=== PATIENT | male | born 1995 | race Caucasian/White ===

== ENCOUNTER 2019-04-04 15:42 | Emergency (ER) | payer SELFPAY ==
[~2019-04-04] VITALS: Ht 182.9 cm; Wt 129.3 kg
[2019-04-04 16:39] VITALS: BP 120/68
[2019-04-04] MEDS ORDERED: IBUPROFEN 800 MG TAB PO ONE ×2 (17:15→17:16)
== END 2019-04-04 17:25 | disposition home or self-care (01) ==
LOC: ER 15:56
DX: T24.221A Burn of second degree of right knee, initial encounter (principal); Z88.1 Allergy status to other antibiotic agents; X08.8XXA Exposure to other specified smoke, fire and flames, initial encounter; Y93.89 Activity, other specified; Y92.89 Other specified places as the place of occurrence of the external cause; Y99.8 Other external cause status

== ENCOUNTER 2019-07-21 13:36 | Inpatient (IN) | payer MEDICAID ==
[~2019-07-21] VITALS: Ht 190.5 cm; Wt 128.6 kg
[2019-07-21 14:20] LABS: Urine Bacteria FEW /hpf (None Seen); Urine Blood 2+ /uL (Negative); Urine Hyaline Cast FEW /lpf (0 - 2); Urine Mucus FEW (None Seen); Urine Specific Gravity 1.016 (1.001-1.035); Urine WBC 50 /hpf (0 - 3)
[2019-07-21] MEDS ORDERED: SODIUM CHLORIDE 0.9% 1,000 ML IV ONE ×2 (14:43)
[2019-07-21] MEDS ORDERED: TAMSULOSIN HYDROCHLORIDE 0.4 MG CAP PO ONE (14:45)
[2019-07-21] MEDS ORDERED: KETOROLAC TROMETH 30 MG/ML 1ML VIAL IV ONE ×2 (14:45→16:30)
[2019-07-21 14:50] LABS: Basophils # (auto) 0.1 uL; Basophils % (auto) 0.5 % (0.0-2.0); Eosinophils # (auto) 0.4 uL; Eosinophils % (auto) 3.8 % (0.0-7.0); Hematocrit 48.1 % (41.0-53.0); Hemoglobin 16.2 g/dL (13.5-17.5); Lymphocytes # (auto) 1.3 uL; Lymphocytes % (auto) 13.3 % (10.0-50.0); Mean Corpuscular Hemoglobin 29.7 pg (28.0-32.0); Mean Corpuscular Hgb Conc. 33.8 g/dL (32.0-36.0); Mean Corpuscular Volume 87.9 fL (80.0-100.0); Monocytes # (auto) 0.7 uL; Monocytes % (auto) 7.4 % (0.0-12.0); Neutrophils # (auto) 7.3 uL; Nucleated Red Blood Cells % 0.1 %; Platelet Count (auto) 272 10^3/uL (140-450); Red Blood Cells 5.47 10^6/uL (4.5-5.90); Red Cell Distribution Width 12.8 % (11.8-14.3); White Blood Cell 9.8 10^3/uL (4.4-10.8)
[2019-07-21 15:04] LABS: Albumin 3.7 g/dL (3.4-5.0); BUN/Creatinine Ratio 12.1; Calcium 9.2 mg/dL (8.5-10.1); Potassium 4.3 mmol/L (3.5-5.1)
[2019-07-21 15:07] LABS: Bilirubin, Total 0.4 mg/dL (0.2-1.0); Total Protein 7.2 g/dL (6.4-8.2)
[2019-07-21] MEDS ORDERED: cefTRIAXone 1GM/50ML D5W 50 ML IV ONE (17:30)
[2019-07-21] MEDS: SODIUM CHLORIDE 0.9% 1,000 ML IV SCH (17:32)
[2019-07-21] MEDS: TAMSULOSIN HYDROCHLORIDE 0.4 MG CAP PO SCH (18:46)
--- NOTE | 2019-07-21 19:40 | NUR ---
Patient requesting to go outside and smoke. Patient informed of the risk associated with tobacco smoking. Patient verbalized understanding and still requesting to go outside and smoke. Patient signed an AMA to smoke.
--- NOTE | 2019-07-21 20:30 | NUR ---
open note assumed care of pt. upon entering room pt awake, alert and oriented x4. pt on room air no distress noted or expressed. pt updated on plan of care, no questions at this time. pt bed locked, low and 2x rails up. call light in reach, will round on pt q1hr and prn.
[2019-07-21] MEDS: HYDROcodone-ACET 5/325MG TAB PO PRN (21:04)
[2019-07-21 22:00] VITALS: BP 128/69
[2019-07-22] MEDS: SODIUM CHLORIDE 0.9% 1,000 ML IV SCH ×3 (01:48→17:03)
[2019-07-22] MEDS: ACETAMINOPHEN 500 MG TAB PO PRN ×2 (02:45→12:37)
--- NOTE | 2019-07-22 04:08 | NUR ---
pt off unit to smoke. no distress noted.
--- NOTE | 2019-07-22 04:23 | NUR ---
pt back to room. no distress noted or expressed. call light in reach will continue to monitor.
[2019-07-22 05:00] VITALS: BP 129/63
[2019-07-22 06:06] LABS: Basophils # (auto) 0 uL; Basophils % (auto) 0.5 % (0.0-2.0); Eosinophils # (auto) 0.5 uL; Eosinophils % (auto) 6.2 % (0.0-7.0); Hematocrit 42.3 % (41.0-53.0); Hemoglobin 14.4 g/dL (13.5-17.5); Lymphocytes # (auto) 1.9 uL; Lymphocytes % (auto) 26.3 % (10.0-50.0); Mean Corpuscular Hemoglobin 29.9 pg (28.0-32.0); Mean Corpuscular Hgb Conc. 34.1 g/dL (32.0-36.0); Mean Corpuscular Volume 87.6 fL (80.0-100.0); Monocytes # (auto) 0.6 uL; Monocytes % (auto) 7.9 % (0.0-12.0); Neutrophils # (auto) 4.3 uL; Neutrophils % (auto) 59.1 % (37.0-80.0); Nucleated Red Blood Cells % 0.1 %; Platelet Count (auto) 225 10^3/uL (140-450); Red Blood Cells 4.84 10^6/uL (4.5-5.90); Red Cell Distribution Width 12.8 % (11.8-14.3); White Blood Cell 7.4 10^3/uL (4.4-10.8)
[2019-07-22 06:40] LABS: Potassium 3.8 mmol/L (3.5-5.1)
[2019-07-22 06:51] LABS: BUN/Creatinine Ratio 14.2; Calcium 8.5 mg/dL (8.5-10.1)
--- NOTE | 2019-07-22 07:25 | NUR ---
Opening Shift Note Assumed care of patient, awake and alert. Patient expressing pain on right flank, provided warm compresses and position change. Instructed on POC and to call for assist PRN, bed in locked and lowest position, and call light within reach. Will continue to monitor for changes Q1hr and PRN.
[2019-07-22] MEDS: HYDROcodone-ACET 5/325MG TAB PO PRN ×2 (07:51→14:20)
[2019-07-22 08:00] VITALS: BP 116/63
[2019-07-22] MEDS: cefTRIAXone 1GM/50ML D5W 50 ML IV SCH (09:14)
[2019-07-22] MEDS: FAMOTIDINE 20 MG TAB PO SCH (09:15)
--- NOTE | 2019-07-22 09:20 | NUR ---
Patient off floor to go smoke. Signed AMA form in patient file. Educated patient he has 30 minutes to return to room.
--- NOTE | 2019-07-22 09:24 | NUR ---
Patient returned to room from leaving floor.
[2019-07-22 09:37] VITALS: BP 116/63
[2019-07-22 13:00] VITALS: BP 114/62
--- NOTE | 2019-07-22 15:18 | NUR ---
Dr. Marcus bedside with patient discussing plan of care.
[2019-07-22] MEDS ORDERED: KETOROLAC TROMETH 30 MG/ML 1ML VIAL IV ONE (15:45)
[2019-07-22] MEDS: MORPHINE SULF INJ 2 MG/ML SYRINGE 1ML IV PRN (16:15)
[2019-07-22] MEDS: ONDANSETRON HCL 4 MG/2 ML VIAL IV PRN (16:19)
[2019-07-22 16:58] VITALS: BP 120/69
[2019-07-22] MEDS: TAMSULOSIN HYDROCHLORIDE 0.4 MG CAP PO SCH (18:22)
--- NOTE | 2019-07-22 19:35 | NUR ---
OPEN NOTE assumed care of pt. upon entering room pt awake, alert and oriented x4. pt on room air no distress noted or expressed. pt updated on plan of care, pt has 2 collateral at bedside. no questions at this time. bed locked, low and 2x rails up. ct states he will 'go out to smoke for a minute' with collateral. pt has AMA to smoke.
[2019-07-22 21:57] VITALS: BP 142/67
[2019-07-23] MEDS: SODIUM CHLORIDE 0.9% 1,000 ML IV SCH ×3 (01:03→17:03)
[2019-07-23] MEDS: HYDROcodone-ACET 5/325MG TAB PO PRN ×3 (02:50→21:08)
--- NOTE | 2019-07-23 03:58 | NUR ---
pt off unit to smoke. no distress noted or expressed.
--- NOTE | 2019-07-23 04:11 | NUR ---
pt back to room without issue.
[2019-07-23] MEDS: ONDANSETRON HCL 4 MG/2 ML VIAL IV PRN ×2 (04:23→15:11)
[2019-07-23 05:00] VITALS: BP 119/75
[2019-07-23 07:25] LABS: BUN/Creatinine Ratio 10.6; Calcium 8.5 mg/dL (8.5-10.1); Potassium 3.5 mmol/L (3.5-5.1)
[2019-07-23] MEDS: cefTRIAXone 1GM/50ML D5W 50 ML IV SCH (08:42)
[2019-07-23] MEDS: FAMOTIDINE 20 MG TAB PO SCH (08:43)
--- NOTE | 2019-07-23 09:09 | NUR ---
Weekend information technology data analyst-I did not receive a page regarding the social service consult for this patient.
[2019-07-23 09:35] VITALS: BP 113/55
[2019-07-23 13:00] VITALS: BP 112/52
--- NOTE | 2019-07-23 13:20 | NUR ---
Urine sample collected and set to lab
[2019-07-23] MEDS: ACETAMINOPHEN 500 MG TAB PO PRN (13:29)
[2019-07-23] MEDS ORDERED: MANNITOL FTV 25% 12.5 GM/50 ML 50 ML IV ONE (13:30)
[2019-07-23] MEDS ORDERED: KETOROLAC TROMETH 30 MG/ML 1ML VIAL IV PRN (13:30)
[2019-07-23] MEDS: MORPHINE SULF INJ 2 MG/ML SYRINGE 1ML IV PRN (15:11)
[2019-07-23 16:49] VITALS: BP 133/76
--- NOTE | 2019-07-23 18:35 | NUR ---
IV Insertion IV access obtained, via clean sterile technique by inserting 22 gauge catheter in the right hand after one attempt. IV secured properly. No trauma to site. Patient tolerated procedure well.
[2019-07-23] MEDS: TAMSULOSIN HYDROCHLORIDE 0.4 MG CAP PO SCH (18:38)
--- NOTE | 2019-07-23 19:23 | NUR ---
Closing Note Report given to shift leader RN. No signs or symptoms of distress noted at this time.
--- NOTE | 2019-07-23 20:50 | NUR ---
STRAINED 425 ML OF URINE AND NOTHING WAS OBTAINED FROM IT. WILL CONTINUE TO MONITOR.
[2019-07-23 21:54] VITALS: BP 130/76
--- NOTE | 2019-07-23 22:25 | NUR ---
PATIENT OFF UNIT TO SMOKE CIGARETTE.
--- NOTE | 2019-07-23 23:15 | NUR ---
STRAINED 125 ML OF URINE. WAS FREE OF ANY SEDIMENTS.
[2019-07-24] MEDS: ONDANSETRON HCL 4 MG/2 ML VIAL IV PRN ×3 (02:32→23:02)
[2019-07-24] MEDS: MORPHINE SULF INJ 2 MG/ML SYRINGE 1ML IV PRN ×4 (02:32→23:03)
[2019-07-24 04:57] VITALS: BP 109/73
[2019-07-24] MEDS: SODIUM CHLORIDE 0.9% 1,000 ML IV SCH ×3 (05:00→17:36)
--- NOTE | 2019-07-24 05:15 | NUR ---
STRAINED 375 ML OF URINE. NO STONES WERE SEEN ONLY MUCUS STRINGS.
[2019-07-24 05:53] LABS: Basophils # (auto) 0.1 uL; Basophils % (auto) 0.9 % (0.0-2.0); Eosinophils # (auto) 0.4 uL; Eosinophils % (auto) 5.5 % (0.0-7.0); Hematocrit 42.9 % (41.0-53.0); Hemoglobin 14.7 g/dL (13.5-17.5); Lymphocytes # (auto) 2.1 uL; Lymphocytes % (auto) 29.1 % (10.0-50.0); Mean Corpuscular Hemoglobin 29.8 pg (28.0-32.0); Mean Corpuscular Hgb Conc. 34.2 g/dL (32.0-36.0); Mean Corpuscular Volume 87.1 fL (80.0-100.0); Monocytes # (auto) 0.6 uL; Neutrophils # (auto) 4.1 uL; Neutrophils % (auto) 56.5 % (37.0-80.0); Platelet Count (auto) 246 10^3/uL (140-450); Red Blood Cells 4.93 10^6/uL (4.5-5.90); Red Cell Distribution Width 12.7 % (11.8-14.3); White Blood Cell 7.3 10^3/uL (4.4-10.8)
[2019-07-24 06:08] LABS: INR 1.04 (0.9-1.15)
[2019-07-24 06:10] LABS: Calcium 8.7 mg/dL (8.5-10.1); Potassium 3.6 mmol/L (3.5-5.1)
[2019-07-24 06:12] LABS: BUN/Creatinine Ratio 9.9
--- NOTE | 2019-07-24 07:20 | NUR ---
Opening Note Received report from cnc machinist 2nd shift RN. Patient is resting in bed with eyes closed, easy to wake by calling name. No signs or symptoms of distress noted at this time. Per cnc machinist 2nd shift RN patient has been NPO since 399 for possible procedure today. Reviewed plan of care with patient, patient verbalized understanding. Bed in low and locked position, call light within reach. Will continue to monitor Q1 hour and PRN.
--- NOTE | 2019-07-24 08:20 | NUR ---
consents signed and placed in patient chart
--- NOTE | 2019-07-24 08:41 | NUR ---
Patient taken down to laborer livestock
[2019-07-24] MEDS ORDERED: IOHEXOL 350 MG/ML 100ML IJ ONE (08:56)
[2019-07-24] MEDS ORDERED: LIDOCAINE 2%HCL (LOCAL ANESTH.) INJ 20ML MDV ONE ×2 (08:56→09:33)
[2019-07-24] MEDS: cefTRIAXone 1GM/50ML D5W 50 ML IV SCH (09:00)
[2019-07-24] MEDS ORDERED: MIDAZOLAM HCL 1MG/1ML-2 ML VIAL ONE (09:01)
[2019-07-24] MEDS ORDERED: fentaNYL CITRATE 100 MCG/2 ML VL ONE ×2 (09:01→09:47)
[2019-07-24 09:04] VITALS: BP 124/62
[2019-07-24] MEDS: FAMOTIDINE 20 MG TAB PO SCH (10:00)
--- NOTE | 2019-07-24 10:38 | NUR ---
Received report from lab rn Patient to be brought back to room. Will await patient
--- NOTE | 2019-07-24 10:48 | NUR ---
s/p nephrostomy tube Patient back to room. Patient is s/p right nephrectomy tube placement. Patient is awake, alert and oriented x4. No signs or symptoms of distress noted at this time. 100cc of sanguinous fluid noted in collection bag at this time. Dressing to right flank area is clean, dry and intact. Blood pressure 137/87, heart rate 68, 98% on room air, respirations 14. Patient states pain 8/10 to right flank area. Will medicate per MD orders. Bed alarm on for safety, patient instructed to call for assistance. Bed in low and locked position, call light within reach. Will continue to monitor Q1 hour and PRN. Family at bedside
--- NOTE | 2019-07-24 11:21 | NUR ---
Dr. Osman at bedside Updating patient on plan of care. Will continue to monitor Q1 hour and PRN.
[2019-07-24 12:44] VITALS: BP 128/84
[2019-07-24] MEDS: HYDROcodone-ACET 5/325MG TAB PO PRN ×2 (12:44→19:57)
[2019-07-24] MEDS: ACETAMINOPHEN 500 MG TAB PO PRN (14:49)
[2019-07-24 17:00] VITALS: BP 116/60
[2019-07-24] MEDS: TAMSULOSIN HYDROCHLORIDE 0.4 MG CAP PO SCH (18:09)
--- NOTE | 2019-07-24 19:22 | NUR ---
Closing Note Report given to night supervisor RN. No signs or symptoms of distress noted at this time.
--- NOTE | 2019-07-24 19:24 | NUR ---
Total Nephrostomy output 1,075mls
--- NOTE | 2019-07-24 19:45 | NUR ---
Opening shift note Assumed care of patient who is A&Ox4. Currently on RA with no s/s of SOB or distress. Reports 8/10 pain to right flank area. Pain management options discussed with patient. Will medicated according to orders. Patient is able to ambulate independently at baseline. Right nephrostomy tube in place and draining pink tinged urine. Dressing is CDI. POC discussed with patient who verbalizes understanding. Bed is in low locked position with side rails up x2. Call light is within reach and patient encouraged to call for assistance when needed. Will continue to monitor for changes PRN.
[2019-07-24 21:39] VITALS: BP 111/60
--- NOTE | 2019-07-24 21:59 | NUR ---
Nephrostomy output 300ml of pink tinged urine emptied from nephrostomy tube.
--- NOTE | 2019-07-24 22:07 | NUR ---
Strained 200ml light yellow urine. No stones were strained.
--- NOTE | 2019-07-24 22:11 | NUR ---
Patient off unit to smoke cigarette.
--- NOTE | 2019-07-24 22:30 | NUR ---
Patient returned to unit. No distress noted.
--- NOTE | 2019-07-25 01:06 | NUR ---
Nephrostomy output Emptied 300ml of pink tinged urine from nephrostomy bag. Patient tolerated well.
[2019-07-25] MEDS: SODIUM CHLORIDE 0.9% 1,000 ML IV SCH ×2 (01:17→08:11)
[2019-07-25] MEDS: HYDROcodone-ACET 5/325MG TAB PO PRN ×2 (02:42→11:39)
[2019-07-25 05:02] VITALS: BP 136/75
[2019-07-25 06:42] LABS: Basophils # (auto) 0.1 uL; Basophils % (auto) 0.7 % (0.0-2.0); Eosinophils # (auto) 0.3 uL; Eosinophils % (auto) 4.4 % (0.0-7.0); Hematocrit 43.4 % (41.0-53.0); Hemoglobin 14.9 g/dL (13.5-17.5); Lymphocytes % (auto) 27.7 % (10.0-50.0); Mean Corpuscular Hemoglobin 30.2 pg (28.0-32.0); Mean Corpuscular Hgb Conc. 34.5 g/dL (32.0-36.0); Mean Corpuscular Volume 87.7 fL (80.0-100.0); Monocytes # (auto) 0.6 uL; Monocytes % (auto) 7.9 % (0.0-12.0); Neutrophils # (auto) 4.3 uL; Neutrophils % (auto) 59.3 % (37.0-80.0); Nucleated Red Blood Cells % 0.1 %; Platelet Count (auto) 247 10^3/uL (140-450); Red Blood Cells 4.94 10^6/uL (4.5-5.90); Red Cell Distribution Width 12.8 % (11.8-14.3); White Blood Cell 7.3 10^3/uL (4.4-10.8)
[2019-07-25 06:54] LABS: Potassium 3.6 mmol/L (3.5-5.1)
[2019-07-25 07:00] LABS: Albumin 3.2 g/dL (3.4-5.0); BUN/Creatinine Ratio 10.3; Calcium 8.9 mg/dL (8.5-10.1)
[2019-07-25 07:03] LABS: Bilirubin, Total 0.2 mg/dL (0.2-1.0); Total Protein 6.3 g/dL (6.4-8.2)
--- NOTE | 2019-07-25 07:53 | NUR ---
RECEIVED REPORT AND ASSUMED CARE OF PT. A/OX4. DENIED S/S ACUTE DISTRESS. UPDATE PT WITH POC. BED AT LOWEST POSITION. CALL LIGHT AND BELONGINGS WITHIN REACH. WILL CONT TO MONITOR.
[2019-07-25] MEDS: MORPHINE SULF INJ 2 MG/ML SYRINGE 1ML IV PRN (08:06)
[2019-07-25] MEDS: ONDANSETRON HCL 4 MG/2 ML VIAL IV PRN (08:11)
[2019-07-25] MEDS: cefTRIAXone 1GM/50ML D5W 50 ML IV SCH (08:12)
[2019-07-25] MEDS: FAMOTIDINE 20 MG TAB PO SCH (08:13)
[2019-07-25 09:00] VITALS: BP 124/69
[2019-07-25 13:00] VITALS: BP 118/54
[2019-07-25] MEDS ORDERED: CIPR-217 PO (13:50)
--- NOTE | 2019-07-25 15:55 | NUR ---
A/OX4. DENIED S/S ACUTE DISTRESS. DC INSTRUCTIONS GIVEN AND PT VERBALIZED UNDERSTANDING. IV DC. EMPHASIZED NEED FOR F/U APPOINTMENT. PT LEFT UNIT IN STABLE CONDITION.
== END 2019-07-25 15:30 | disposition home or self-care (01) | DRG 463 ==
LOC: ER 13:44 → OVERFLOW 13:45 → WEST WING 20:10
PROVIDERS: ADMIT Nurse Practitioner Acute Care; ATTEND Internal Medicine
PROC: 0T903ZZ Drainage of Right Kidney, Percutaneous Approach (ICD-10-PCS; principal; 2019-07-21)
PROC: BT1D1ZZ Fluoroscopy of Right Kidney, Ureter and Bladder using Low Osmolar Contrast (ICD-10-PCS; 2019-07-21)
DX: N13.6 Pyonephrosis (principal); N17.0 Acute kidney failure with tubular necrosis; E66.9 Obesity, unspecified; E86.0 Dehydration; N18.9 Chronic kidney disease, unspecified; Z68.35 Body mass index [BMI] 35.0-35.9, adult; Z88.1 Allergy status to other antibiotic agents; Z72.0 Tobacco use; Z82.49 Family history of ischemic heart disease and other diseases of the circulatory system; Z82.5 Family history of asthma and other chronic lower respiratory diseases; Z82.62 Family history of osteoporosis; Z87.442 Personal history of urinary calculi
CPT/HCPCS: 36415; 74018; 74176; 76775; 76942; 80048; 80053; 81001; 83970; 84550; 85025; 85610; 87086; 96361; 96365; 96366; 96375; 99152; 99153; C1729; G0378; J0696; J1885; J2250; J2405

== ENCOUNTER 2019-08-08 09:44 | Emergency (ER) | payer MEDICAID ==
[~2019-08-08] VITALS: Ht 193 cm; Wt 129.3 kg
[~2019-08-08 09:44] MED LIST: CIPR-217 PO
[2019-08-08 09:55] VITALS: BP 126/70
== END 2019-08-08 11:07 | disposition home or self-care (01) ==
LOC: ER 09:47
DX: Z43.6 Encounter for attention to other artificial openings of urinary tract (principal); Z88.1 Allergy status to other antibiotic agents; Z79.2 Long term (current) use of antibiotics

== ENCOUNTER 2019-08-27 17:35 | Emergency (ER) | payer MEDICAID ==
[~2019-08-27] VITALS: Ht 190.5 cm; Wt 129.3 kg
[2019-08-27] MEDS ORDERED: ONDANSETRON ODT 4 MG TAB PO ONE (21:15)
[2019-08-27] MEDS ORDERED: HYDROcodone-ACET 5/325MG TAB PO ONE (21:15)
[2019-08-27 22:50] LABS: Basophils # (auto) 0.1 uL; Basophils % (auto) 0.5 % (0.0-2.0); Eosinophils # (auto) 0.3 uL; Eosinophils % (auto) 3.3 % (0.0-7.0); Hematocrit 48.7 % (41.0-53.0); Hemoglobin 16.8 g/dL (13.5-17.5); Lymphocytes # (auto) 1.8 uL; Lymphocytes % (auto) 18.9 % (10.0-50.0); Mean Corpuscular Hemoglobin 29.9 pg (28.0-32.0); Mean Corpuscular Hgb Conc. 34.6 g/dL (32.0-36.0); Mean Corpuscular Volume 86.6 fL (80.0-100.0); Monocytes # (auto) 0.7 uL; Monocytes % (auto) 7.1 % (0.0-12.0); Neutrophils # (auto) 6.8 uL; Neutrophils % (auto) 70.2 % (37.0-80.0); Nucleated Red Blood Cells % 0.3 %; Platelet Count (auto) 270 10^3/uL (140-450); Red Blood Cells 5.63 10^6/uL (4.5-5.90); Red Cell Distribution Width 12.9 % (11.8-14.3); White Blood Cell 9.6 10^3/uL (4.4-10.8)
[2019-08-27] MEDS ORDERED: KETOROLAC TROMETH 60MG/2ML VIAL IM ONE (23:00)
[2019-08-27 23:06] LABS: Albumin 4.4 g/dL (3.4-5.0); Calcium 9.5 mg/dL (8.5-10.1); Potassium 3.7 mmol/L (3.5-5.1)
[2019-08-27 23:10] LABS: BUN/Creatinine Ratio 10.6; Bilirubin, Total 0.7 mg/dL (0.2-1.0); Total Protein 8.3 g/dL (6.4-8.2)
[2019-08-28] VITALS: BP 111/61
== END 2019-08-27 22:23 | disposition home or self-care (01) ==
LOC: ER 17:36
DX: N20.0 Calculus of kidney (principal); F17.210 Nicotine dependence, cigarettes, uncomplicated; F12.10 Cannabis abuse, uncomplicated; Z88.1 Allergy status to other antibiotic agents; Z93.6 Other artificial openings of urinary tract status; Z88.8 Allergy status to other drugs, medicaments and biological substances
CPT/HCPCS: 36415; 74176; 80053; 85025; 96372; 99284; J1885; Q0162

== ENCOUNTER 2019-09-05 03:32 | Emergency (ER) | payer MEDICAID ==
[~2019-09-05] VITALS: Ht 190.5 cm; Wt 132.6 kg
[2019-09-05] MEDS ORDERED: MORPHINE SULFATE 4 MG/ML SYR/VIAL IV ONE (04:00)
[2019-09-05] MEDS ORDERED: ONDANSETRON HCL 4 MG/2 ML VIAL IV ONE (04:00)
[2019-09-05 04:04] VITALS: BP 120/55
[2019-09-05] MEDS ORDERED: SODIUM CHLORIDE 0.9% 1,000 ML IV ONE (04:45)
[2019-09-05 05:43] LABS: Urine Bacteria FEW /hpf (None Seen); Urine Blood TRACE /uL (Negative); Urine Mucus FEW (None Seen); Urine Specific Gravity 1.009 (1.001-1.035); Urine WBC 7 /hpf (0 - 3)
== END 2019-09-05 05:59 | disposition home or self-care (01) ==
LOC: ER 03:34
DX: N20.0 Calculus of kidney (principal); F17.210 Nicotine dependence, cigarettes, uncomplicated; F12.10 Cannabis abuse, uncomplicated; Z88.1 Allergy status to other antibiotic agents
CPT/HCPCS: 74176; 81001; 96374; 96375; 99284; J2270; J2405; J7030

== ENCOUNTER 2019-09-06 10:59 | Emergency (ER) | payer MEDICAID ==
[~2019-09-06] VITALS: Ht 182.9 cm; Wt 83.9 kg
[2019-09-06] MEDS ORDERED: IOHEXOL 300 MG/ML 100ML BOTTLE IJ ONE (12:25)
[2019-09-06 13:49] VITALS: BP 118/79
== END 2019-09-06 13:53 | disposition home or self-care (01) ==
LOC: ER 10:59
DX: T83.022A Displacement of nephrostomy catheter, initial encounter (principal); F17.210 Nicotine dependence, cigarettes, uncomplicated; F12.10 Cannabis abuse, uncomplicated; Z87.442 Personal history of urinary calculi; Z88.1 Allergy status to other antibiotic agents
CPT/HCPCS: 74425; 99283; Q9967

== ENCOUNTER 2019-09-07 22:47 | Emergency (ER) | payer MEDICAID ==
[~2019-09-07] VITALS: Ht 190.5 cm; Wt 129.3 kg
[2019-09-07 23:27] LABS: Basophils # (auto) 0 uL; Basophils % (auto) 0.3 % (0.0-2.0); Eosinophils # (auto) 0.2 uL; Eosinophils % (auto) 2.1 % (0.0-7.0); Hemoglobin 16.2 g/dL (13.5-17.5); Lymphocytes # (auto) 1.3 uL; Lymphocytes % (auto) 12.3 % (10.0-50.0); Mean Corpuscular Hemoglobin 29.7 pg (28.0-32.0); Mean Corpuscular Hgb Conc. 34.4 g/dL (32.0-36.0); Mean Corpuscular Volume 86.3 fL (80.0-100.0); Monocytes # (auto) 0.7 uL; Monocytes % (auto) 6.9 % (0.0-12.0); Neutrophils # (auto) 8.5 uL; Neutrophils % (auto) 78.4 % (37.0-80.0); Nucleated Red Blood Cells % 0.9 %; Platelet Count (auto) 296 10^3/uL (140-450); Red Blood Cells 5.45 10^6/uL (4.5-5.90); Red Cell Distribution Width 12.9 % (11.8-14.3); White Blood Cell 10.8 10^3/uL (4.4-10.8)
[2019-09-07 23:48] LABS: BUN/Creatinine Ratio 11.8; Calcium 9.8 mg/dL (8.5-10.1); Potassium 3.6 mmol/L (3.5-5.1)
[2019-09-07 23:51] LABS: Bilirubin, Total 0.6 mg/dL (0.2-1.0); Total Protein 8.1 g/dL (6.4-8.2)
[2019-09-07 23:55] LABS: INR 1.06 (0.9-1.15); Partial Thromboplastin Time 30.2 sec (23.64-32.05)
[2019-09-08] MEDS ORDERED: SODIUM CHLORIDE 0.9% 1,000 ML IV ONE (00:30)
[2019-09-08 00:35] LABS: Urine Bacteria NONE SEEN /hpf (None Seen); Urine Blood 2+ /uL (Negative); Urine Specific Gravity 1.017 (1.001-1.035); Urine WBC 3 /hpf (0 - 3)
[2019-09-08] MEDS ORDERED: ONDANSETRON HCL 4 MG/2 ML VIAL IV ONE (00:45)
[2019-09-08] MEDS ORDERED: MORPHINE SULFATE 4 MG/ML SYR/VIAL IV ONE (00:45)
[2019-09-08 00:49] LABS: Alcohol, Urine < 3.0 mg/dL (0-5); Amphetamine Screen, Urine NEGATIVE (NEGATIVE); Barbiturate Scree,Urine NEGATIVE (NEGATIVE); Benzodiazephine Screen, Urine NEGATIVE (NEGATIVE); Cannabinoid Screen, Urine POSITIVE (NEGATIVE); Cocaine Screen, Urine NEGATIVE (NEGATIVE); Opiate Scree,Urine POSITIVE (NEGATIVE); Phencyclidine Screen, Urine NEGATIVE (NEGATIVE)
[2019-09-08 03:42] VITALS: BP 137/86
== END 2019-09-08 04:37 | disposition home or self-care (01) ==
LOC: ER 22:48
DX: G89.4 Chronic pain syndrome (principal); F44.9 Dissociative and conversion disorder, unspecified; F17.210 Nicotine dependence, cigarettes, uncomplicated; Z87.442 Personal history of urinary calculi
CPT/HCPCS: 36415; 71045; 71260; 74177; 80053; 80307; 81001; 83605; 85025; 85379; 85610; 85730; 96374; 96375; 99284; J2270; J2405; J7030